=== PATIENT | male | born 2000 | race Caucasian/White ===

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

== ENCOUNTER 2021-03-10 18:53 | Emergency (ER) | payer BC, SELFPAY ==
--- NOTE | ~2021-03-10 | XR_ITS ---
EXAMINATION: XR foot LT min 3V EXAM DATE: 03/10/2021 20:11 INDICATION: Initial encounter following injury, with pain of the left metatarsals. Injury yesterday. TECHNIQUE: Left foot dorsoplantar, lateral and oblique projections obtained and reviewed. There is n o prior study for comparison. FINDINGS: Left metatarsal bones unremarkable. There are no acute fractures or dislocations identifi ed. There is no subcutaneous gas. The soft tissue is unremarkable. There are no radiopaque foreig n bodies. IMPRESSION: 1. Left foot exam without acute osseous findings. Reviewed, dictated and finalized at location [facility]
[2021-03-10 19:00] VITALS: BP 132/74; PULSE 98; RESP 18; TEMP 36.6; O2SAT 99
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
== END 2021-03-10 20:59 | disposition home or self-care (01) ==
PROVIDERS: Emergency Provider Emergency Medicine; PCP Pediatrics
DX: S90.32XA Contusion of left foot, initial encounter (principal); V86.56XA Driver of dirt bike or motor/cross bike injured in nontraffic accident, initial encounter
CPT/HCPCS: 73630; 99283

== ENCOUNTER 2022-09-05 15:18 | Emergency (ER) | payer BC, SELFPAY ==
[2022-09-05 15:29] VITALS: BP 129/73; PULSE 67; RESP 16; TEMP 36.8; O2SAT 100
--- NOTE | 2022-09-05 15:46 | ED.GENADULT ---
HPI - General Adult General Chief complaint: Wound/Laceration Stated complaint: wound inf Time Seen by Provider: 09/05/22 15:47 Source: patient, RN notes reviewed and old records reviewed Mode of arrival: ambulatory Limitations: no limitations History of Present Illness HPI narrative: 22-year-old male states that he fell 2 days ago, scraped his wrist, developed redness since last night. Has been trying to keep it clean and dry, worked all day. Has been washing it and keeping a Band-Aid on it. States he is up-to-date on all immunizations. Related Data Home Medications Medication Instructions Recorded Confirmed escitalopram oxalate 20 mg tablet 20 mg PO DAILY 09/03/22 09/03/22 (Lexapro) Allergies Allergy/AdvReac Type Severity Reaction Status Date / Time Penicillins Allergy Unknown Hives Verified 09/05/22 15:39 venom-honey bee Allergy Unknown unknown Verified 09/05/22 15:39 venom-wasp Allergy Unknown unknown Verified 09/05/22 15:39 Review of Systems Review of Systems: All systems reviewed & are unremarkable except as noted in HPI and below Constitutional: Constitutional: Reports no additional constitutional complaints Eyes: Eyes: Reports no additional eye complaints ENT: Reports system reviewed and no additional complaints, except as documented Cardiovascular: Cardiovascular: Reports no additional cardiovascular complaints, Denies chest pain and Denies dyspnea Respiratory: Respiratory: Reports no additional respiratory complaints, Denies chest congestion, Denies cough and Denies dyspnea Gastrointestinal: Gastrointestinal: Reports no additional gastrointestinal complaints, Denies abdominal pain, Denies nausea and Denies vomiting Musculoskeletal: Musculoskeletal: Reports no additional musculoskeletal complaints Integumentary/Breasts: Skin/Breast: Reports as per HPI Neurologic: Reports system reviewed and no additional complaints, except as documented Psychiatric: Psychiatric: Reports no additional psychiatric complaints Allergic/Immunologic: Allergic/Immunologic: Reports no additional allergic/immunologic complaints [facility] Past Medical History Medical History Dislocation of tarsometatarsal joint of left foot Healthy adult male Left sided abdominal pain Lisfranc's sprain Surgical History Surgical History History of knee surgery 06/20/2016 01/02/2017 History of tonsillectomy Family History Family History Grandparent Diabetes mellitus Other Arthritis Bipolar disorder Carcinoma of colon Cerebrovascular accident Depression Family history of elevated blood lipids Family history of malignant neoplasm of breast Family history of malignant neoplasm of ovary HLD (hyperlipidemia) Hypertension Lung disease Malignant neoplasm of prostate Social History Social History Social History: Single Smoking status: Never smoker Tobacco type: smokeless tobacco Smokeless tobacco user: chewing tobacco Additional smoking assessment comments: Chewing tobacco for 7 years. Pt has been vaping for the last 3 months. Alcohol intake: current Drinks per week: 7 Alcohol use details: Pt also drinks 3/4th of a 5th of Whiskey. Substance use: current Substance use type: marijuana Last use: Pt smokes marijuana once a month. 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
== END 2022-09-05 16:02 | disposition home or self-care (01) ==
PROVIDERS: Emergency Provider Nurse Practitioner; PCP Family Medicine
DX: S60.812A Abrasion of left wrist, initial encounter (principal); L08.9 Local infection of the skin and subcutaneous tissue, unspecified; W19.XXXA Unspecified fall, initial encounter; F17.290 Nicotine dependence, other tobacco product, uncomplicated; F12.90 Cannabis use, unspecified, uncomplicated
CPT/HCPCS: 99213; G0463